=== PATIENT | female | born 1960 | race Caucasian/White ===

== ENCOUNTER 2018-02-28 17:12 | Outpatient (REF) | payer BC, SELFPAY | END 2018-02-28 17:32 | LOC: NCHCN 17:12 | PROVIDERS: Visit Provider Registered Nurse | DX: R30.0 Dysuria (principal) | CPT/HCPCS: 87086 ==

== ENCOUNTER 2018-03-05 15:22 | Outpatient (REF) | payer BC, SELFPAY ==
[2018-03-05 23:00] LABS: Epithelial Cells Negative HPF (Negative); Other Cells Negative (Negative); RBC Negative (0-2); WBC >50 HPF (0-5)
[2018-03-05 23:01] LABS: Bacteria Moderate HPF (Negative); C & S Indicated? Yes; Casts Negative LPF (Negative); Crystals Negative HPF (Negative); Mucus Negative (Negative)
== END 2018-03-05 15:42 ==
LOC: NCHCN 15:22
PROVIDERS: PCP Registered Nurse; Visit Provider Registered Nurse
DX: R31.9 Hematuria, unspecified (principal); R30.0 Dysuria
CPT/HCPCS: 87077; 81015; 87086; 87186

== ENCOUNTER 2019-01-03 16:34 | Outpatient (REF) | payer BC, SELFPAY ==
--- NOTE | 2019-01-03 16:10 | PAPFT_PTH ---
PATIENT: Marquita Cifuentes LOC: [facility]#:[id number] AGE/SX: 58/F ROOM: RE01/03/[address]: Kari Maher : 1960 BED: DIS: 01/03/2019 SPEC #: [id number] RECD: 01/04/19 12:58 STATUS: PANDA RERenita #: [id number] TERENCE: 01/03/19 16:[address]: Kari Maher DEPT: [facility], [facility] Cytology RECD BY: Urvashi Martinez ENTERED: 01/04/19 12:58 SP TYPE: PAPFT OTHR DR: Albania Calderon Tissues: 1 - CX/ENDOCX FOR PAP SMEARS Procedures: PAP THIN PREP/[facility] Screening HPV DNA PROBE Comments: [id number]
[2019-01-03 22:24] LABS: TSH 3.66 uIU/mL (0.36-3.74)
== END 2019-01-03 16:54 ==
LOC: NCHCN 16:34
PROVIDERS: PCP Registered Nurse; Visit Provider Internal Medicine
DX: Z00.00 Encounter for general adult medical examination without abnormal findings (principal); E03.9 Hypothyroidism, unspecified; K43.9 Ventral hernia without obstruction or gangrene; Z12.4 Encounter for screening for malignant neoplasm of cervix; Z11.51 Encounter for screening for human papillomavirus (HPV)
CPT/HCPCS: 88142; 84443; 87624

== ENCOUNTER 2019-03-13 21:26 | Outpatient (REF) | payer BC, SELFPAY ==
[2019-03-13 21:53] LABS: TSH 2.56 uIU/mL (0.36-3.74)
== END 2019-03-13 21:46 ==
LOC: LBN 21:26
PROVIDERS: PCP Registered Nurse; Visit Provider Internal Medicine
DX: E03.9 Hypothyroidism, unspecified (principal)
CPT/HCPCS: 84443

== ENCOUNTER 2019-06-24 18:09 | Outpatient (REF) | payer BC, SELFPAY ==
[2019-06-24 21:42] LABS: TSH 1.71 uIU/mL (0.36-3.74)
== END 2019-06-24 18:29 ==
LOC: NCHCN 18:09
PROVIDERS: PCP Registered Nurse; Visit Provider Internal Medicine
DX: E03.9 Hypothyroidism, unspecified (principal)
CPT/HCPCS: 84443

== ENCOUNTER 2021-07-07 21:09 | Outpatient (REF) | payer BC, SELFPAY ==
[2021-07-07 22:36] LABS: Calculated LDL 122 mg/dL (<100); Cholesterol 225 mg/dL (<200); HDL Cholesterol 66 mg/dL (40-60); TSH 3.45 uIU/mL (0.36-3.74); Triglyceride 187 mg/dL (<150)
== END 2021-07-07 21:10 | disposition home or self-care (01) ==
LOC: NCHCN 21:09
PROVIDERS: PCP Registered Nurse; Visit Provider Internal Medicine
DX: E03.9 Hypothyroidism, unspecified (principal); Z13.220 Encounter for screening for lipoid disorders
CPT/HCPCS: 80061; 84443

== ENCOUNTER 2024-01-31 20:38 | Outpatient (REF) | payer BC, SELFPAY ==
--- NOTE | 2024-01-31 15:30 | PAPFT_PTH ---
PATIENT: Marquita Cifuentes LOC: [facility]#:[id number] AGE/SX: 63/F ROOM: RE01/31/[address]: Kari Maher : 1960 BED: DIS: 01/31/2024 SPEC #: [id number] RECD: 02/01/24 12:53 STATUS: BESSIEAmina RERenita #: [id number] TERENCE: 01/31/24 15:[address]: Kari Maher DEPT: [facility] Cytology RECD BY: Urvashi Martinez ENTERED: 02/01/24 12:53 SP TYPE: PAPFT OTHR DR: Albania Calderon Tissues: 1 - CX/ENDOCX FOR PAP SMEARS Procedures: PAP THIN PREP/[facility] Screening HPV DNA PROBE Comments: [id number] (HPV 16 & 18/45)
[2024-01-31 22:03] LABS: Calculated LDL 132 mg/dL (<100); Cholesterol 209 mg/dL (<200); HDL Cholesterol 62 mg/dL (40-60); TSH 2.04 uIU/Ml (0.36-3.74); Triglyceride 76 mg/dL (<150)
== END 2024-01-31 20:39 | disposition home or self-care (01) ==
LOC: NCHCN 20:38
PROVIDERS: PCP Registered Nurse; Visit Provider Internal Medicine
DX: E78.5 Hyperlipidemia, unspecified (principal); Z13.29 Encounter for screening for other suspected endocrine disorder; Z11.51 Encounter for screening for human papillomavirus (HPV); Z01.419 Encounter for gynecological examination (general) (routine) without abnormal findings
CPT/HCPCS: 80061; 88142; 84443; 87624